=== PATIENT | male | born 1945 | race Caucasian/White ===

== ENCOUNTER 2021-03-21 15:32 | Emergency (ER) | payer OTHER ==
[~2021-03-21] VITALS: Ht 175.2 cm; Wt 102.1 kg
[2021-03-21] MEDS ORDERED: COZAAR50 M1 PO ×2 (15:45→15:52)
[2021-03-21] MEDS ORDERED: HEARTBURN RELIE20 MG PO (15:45)
[2021-03-21] MEDS ORDERED: METOPROLOL SUC200 M1 PO (15:46)
[2021-03-21] MEDS ORDERED: TAMSULOSIN HCL0.4 MG PO (15:46)
[2021-03-21] MEDS ORDERED: ATORVASTATIN CA10 M1 PO (15:47)
[2021-03-21] MEDS ORDERED: BRIMONIDINE TAR15 ML OPH (15:47)
[2021-03-21] MEDS ORDERED: PLAVIX75 M1 PO (15:47)
[2021-03-21] MEDS ORDERED: THERA TEARS1 EACH OP (15:48)
[2021-03-21] MEDS ORDERED: ASMANEX HFA13 GM INH (15:51)
[2021-03-21] MEDS ORDERED: NEURONTIN600 MG PO (15:51)
[2021-03-21] MEDS ORDERED: STRIVERDI RESPIM4 GM INH (15:52)
[2021-03-21] MEDS ORDERED: BUDESONIDE-FO10.2 G1 INH (15:53)
[2021-03-21] MEDS ORDERED: MAGNESIUM OXID420 M1 PO (15:53)
[2021-03-21] MEDS ORDERED: SPIRIVA RESPIMAT4 GM INH (15:54)
[2021-03-21] MEDS ORDERED: Accuneb 0.1.25 MG/3 INH (15:55)
[2021-03-21 16:12] LABS: BASO # 0.1 10*3/uL (0.0-0.1); EOS # 0.3 10*3/uL (0.0-0.4); EOS % 3.2 % (1.0-4.0); HEMATOCRIT 43.3 % (42.0-52.0); LYMPH # 1.7 10*3/uL (1.3-4.4); LYMPH % 18.5 % (27.0-41.0); MEAN CELL VOLUME 91.2 fl (80.0-94.0); MEAN CORPUSCULAR HGB 30.1 pg (27.0-31.0); MEAN PLATELET VOLUME 8.7 fl (9.6-12.3); MONO # 0.5 10*3/uL (0.1-1.0); MONO % 5.7 % (3.0-9.0); NEUT # 6.5 10*3/uL (2.3-7.9); NEUT % 71.2 % (47.0-73.0); PLATELET COUNT AUTOMATED 316 10*3/uL (130-400); RED BLOOD COUNT 4.75 10*6/uL (4.50-5.90); RED CELL DISTRI WIDTH 12.5 % (0-14.5); WHITE BLOOD COUNT 9.1 10*3/uL (4.8-10.8)
[2021-03-21 16:30] LABS: ACT PARTIAL THROMBO TIME 30.8 SECONDS (20.0-32.1)
[2021-03-21 16:36] LABS: ALBUMIN 3.6 gm/dl (3.1-4.5); ALKALINE PHOSPHATASE 90 U/L (45-117); CHLORIDE 96 mmol/L (98-107); CREATININE 0.92 mg/dL (0.70-1.30); LIPASE 92 U/L (73-393); POTASSIUM 4.3 mmol/L (3.5-5.1); SGOT/AST 21 IU/L (3-35); SGPT/ALT 28 U/L (12-78); SODIUM 131 mmol/L (136-145); TOTAL PROTEIN 7.8 gm/dL (6.4-8.2)
[2021-03-21 16:37] LABS: BUN 13 mg/dl (7-24)
[2021-03-21 16:39] LABS: TROPONIN I < 0.015 ng/ml (<0.045)
== END 2021-03-21 20:30 | disposition home or self-care (01) ==
LOC: ED 15:32
PROVIDERS: Emergency Medicine
DX: H53.9 Unspecified visual disturbance (principal); Z79.899 Other long term (current) drug therapy